=== PATIENT | male | born 1975 | race African-American/Black ===

== ENCOUNTER 2019-04-14 03:56 | Emergency (ER) | payer MEDICAID, OTHER ==
[2019-04-14] MEDS ORDERED: AMMONIA AROMATIC INHALANT (FLOOR STOCK) As Ordered ONE (04:08)
[2019-04-14 04:14] LABS: BASO % 0.3 % (0.0-1.0); EOS % 0.2 % (0.0-3.0); HEMATOCRIT 45.8 % (42.0-52.0); HEMOGLOBIN 14.6 g/dl (13.5-17.5); LYMPH # 2.5 10^3/uL (1.5-5.0); LYMPH % 20.3 % (24.0-44.0); MEAN CORPUSCULAR HEMOGLOBIN 29.6 pg (27.0-33.0); MEAN CORPUSCULAR HGB CONC 31.9 g/dl (32.0-36.5); MEAN CORPUSCULAR VOLUME 92.7 fl (80.0-96.0); MONO # 0.9 10^3/uL (0.0-0.8); MONO % 7.6 % (0.0-5.0); NEUTROPHILS # 8.6 10^3/uL (1.5-8.5); NEUTROPHILS % 71.2 % (36.0-66.0); PLATELET COUNT, AUTOMATED 279 10^3/uL (150-450); RED BLOOD COUNT 4.94 10^6/uL (4.30-6.10); WHITE BLOOD COUNT 12.1 10^3/uL (4.0-10.0)
[2019-04-14] MEDS ORDERED: NS 1,000 ML IV ONE (04:15)
[2019-04-14 04:29] LABS: INR 1.18; PROTHROMBIN TIME 14.7 SECONDS (11.8-14.0)
[2019-04-14 04:30] LABS: PARTIAL THROMBOPLASTIN TIME 23.9 SECONDS (25.0-38.4)
[2019-04-14 04:38] LABS: BLOOD UREA NITROGEN 13 MG/DL (7-18); CALCIUM LEVEL 8.9 MG/DL (8.5-10.1); CARBON DIOXIDE LEVEL 26 MEQ/L (21-32); CHLORIDE LEVEL 105 MEQ/L (98-107); CK-MB VALUE MASS 7.3 NG/ML (<3.6); CPK CREATINE PHOSPHOKINASE 898 U/L (39-308); CREATININE FOR GFR 1.41 MG/DL (0.70-1.30); ETHYL ALCOHOL (ETHANOL) 0.053 % (0.000-0.010); GLOMERULAR FILTRATION RATE > 60.0 (>60); GLUCOSE, FASTING 107 MG/DL (70-100); MB/CK RELATIVE INDEX 0.81 (< OR =4); POTASSIUM SERUM 3.8 MEQ/L (3.5-5.1); SODIUM LEVEL 141 MEQ/L (136-145); TROPONIN I < 0.02 NG/ML (< 0.10)
[2019-04-14] MEDS ORDERED: FLUT44IN INH (04:54)
[2019-04-14] MEDS ORDERED: PROAAER10 INH (04:54)
[2019-04-14] MEDS ORDERED: MORPHINE 4 MG/ML 1ML VIAL/SYRINGE (J2270) IV PRN (06:00)
[2019-04-14] MEDS ORDERED: ONDANSETRON 4MG/2ML VIAL (J2405) IV ONE (06:00)
[2019-04-14 06:26] LABS: AMPHETAMINES LEVEL URINE NEGATIVE (NEGATIVE); BARBITURATES URINE NEGATIVE (NEGATIVE); BENZODIAZEPINES URINE NEGATIVE (NEGATIVE); CANNABINOIDS URINE POSITIVE (NEGATIVE); COCAINE METABOLITE URINE NEGATIVE (NEGATIVE); METHADONE URINE NEGATIVE (NEGATIVE); OPIATES URINE NEGATIVE (NEGATIVE); PHENCYCLIDINE URINE NEGATIVE (NEGATIVE)
[2019-04-14] MEDS ORDERED: AUGM875T28 PO (06:59)
[2019-04-14] MEDS ORDERED: ONDA4TAB6 PO (06:59)
[2019-04-14] MEDS ORDERED: PERC5TAB12 PO (06:59)
[2019-04-14] MEDS ORDERED: OXYCODONE/APAP 5MG/325MG(BULK FOR ED) 1 TABLET PO ONE (07:00)
[2019-04-14 07:05] VITALS: BP 145/74
--- NOTE | 2019-04-14 08:01 | REP ---
Clinical: Trauma. Technique: Single portable view of the pelvis. Findings: No acute fracture dislocation. Skeletal structures, joint spaces, and surrounding soft tissues are normal. Impression: No fracture or dislocation. Electronically Signed by Humza Prado MD 04/14/2019 07:48 A
--- NOTE | 2019-04-14 08:01 | REP ---
Clinical: Trauma . Comparison: None . Findings: The mediastinum and cardiac silhouette are stable and within normal limits for portable technique. The lung zelaya are clear without acute consolidation, effusion, or pneumothorax. Skeletal structures are intact. Impression: No acute cardiopulmonary process appreciated. Electronically Signed by Humza Prado MD 04/14/2019 07:49 A
--- NOTE | 2019-04-14 09:01 | REP ---
Clinical: Trauma. Technique: Axial noncontrast images from the skull base to the thoracic inlet with coronal and sagittal re-formations. Findings: Alignment and lordosis maintained. Vertebral bodies are intact and there is no evidence for acute fracture / compression injury or subluxation. Spinal canal is patent. Posterior elements and spinous processes are intact. Mild multilevel age-related degenerative changes noted including subtle marginal spurring and very minimal disc space narrowing primarily involving C4 through C6. Paravertebral soft tissues are normal. Impression: 1. Mild age-related degenerative changes. 2. No evidence for acute pathology or trauma/injury. Electronically Signed by Humza Prado MD 04/14/2019 08:52 A
--- NOTE | 2019-04-14 09:03 | REP ---
Clinical: Trauma. Technique: Axial noncontrast images from the skull base to the vertex with coronal re-formations. Findings: Visualized periorbital (left greater than right) traumatic soft tissue swelling is appreciated and there are findings to suggest acute nasal bone fractures. The sinuses and mastoid air cells are clear. The ventricles, sulci, and cisterns are symmetric and normal. Bedoya-white differentiation is maintained. No acute intracranial hemorrhage, mass or mass effect. No extra-axial fluid collection. No evidence for intracranial trauma. Impression: 1. Facial trauma including suspected acute nasal bone fracture 2. No acute intracranial pathology or trauma/injury noted. Electronically Signed by Humza Prado MD 04/14/2019 08:54 A
--- NOTE | 2019-04-16 14:53 | ECGEPIP ---
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
--- NOTE | 2019-04-24 08:51 | REP ---
Maxillofacial CT study without contrast: Repeat dictation. History: Trauma. Preliminary report is provided at time of exam by [facility]. Findings: There is left malar and periorbital facial swelling. No intraorbital hematoma is seen. There is a minimally displaced fracture of the zygomatic arch on the left and there is a nondisplaced fracture of the anterior wall of the left maxillary sinus. No orbital floor fracture is appreciated. No orbital wall fracture is seen. There are slightly depressed fractures in the nasal bone. Visualized intracranial structures are unremarkable. Impression: Left zygomatic, left maxillary sinus, and nasal bone fractures as above. Left malar and preseptal periorbital soft tissue swelling. Electronically Signed by Angelo Quintana MD 04/24/2019 09:04 A
== END 2019-04-14 07:18 | disposition home or self-care (01) ==
LOC: M ED 03:56
DX: S02.40FA Zygomatic fracture, left side, initial encounter for closed fracture (principal); S02.40DA Maxillary fracture, left side, initial encounter for closed fracture; S02.2XXA Fracture of nasal bones, initial encounter for closed fracture; S06.0X1A Concussion with loss of consciousness of 30 minutes or less, initial encounter; T76.11XA Adult physical abuse, suspected, initial encounter; Y92.410 Unspecified street and highway as the place of occurrence of the external cause; Y93.01 Activity, walking, marching and hiking; Z79.51 Long term (current) use of inhaled steroids
CPT/HCPCS: 70450; 70486; 71045; 72125; 72170; 80047; 80048; 80307; 81001; 82550; 82553; 85025; 85610; 85730; 93005; 93041; 94760; 96361; 96374; 96375; 99285; G0480; J2270; J2405

== ENCOUNTER → 2019-11-13 | Emergency (ER) | payer MEDICAID, OTHER ==
[~2019-11-13] MED LIST: AUGM875T28 PO; AZITHROMYCIN 250MG TABLET ONE; FLUT44IN INH; ONDA4TAB6 PO; PERC5TAB12 PO; PROAAER10 INH; cefTRIAXone SOD 250MG VIAL (J0696 PER 250MG) ONE
[2019-12-15 12:29] LABS: CHLAMYDIA DNA AMPLIFICATION NEGATIVE (NEGATIVE); GC DNA AMPLIFICATION NEGATIVE (NEGATIVE)
== END | disposition home or self-care (01) ==
LOC: M ED 13:55
DX: Z11.3 Encounter for screening for infections with a predominantly sexual mode of transmission (principal); J45.909 Unspecified asthma, uncomplicated
CPT/HCPCS: 87491; 87591; 96372; 99283; J0696

== ENCOUNTER 2020-05-05 10:16 | Emergency (ER) | payer OTHER ==
[~2020-05-05] VITALS: Ht 170.2 cm; Wt 78.7 kg
[~2020-05-05 10:16] MED LIST changes: -AZITHROMYCIN 250MG TABLET ONE; -cefTRIAXone SOD 250MG VIAL (J0696 PER 250MG) ONE
--- OUTSIDE RECORDS SUMMARY | 2020-05-05 10:22 | CCD ---
Author Author [facility] Organization [facility] Address Unknown Phone Unavailable Care Team Providers Care Communications Media Professor Name Role Phone Namita PALMER MD Unavailable Unavailable Namita PALMER MD Unavailable Unavailable Namita PALMER MD Unavailable Unavailable Namita PALMER MD Unavailable Unavailable Namita PALMER MD Unavailable Unavailable Namita PALMER MD Unavailable Unavailable Namita PALMER MD Unavailable Unavailable Namita PALMER MD Unavailable Unavailable Namita PALMER MD Unavailable Unavailable Namita PALMER MD Unavailable Unavailable Namita PALMER MD Unavailable Unavailable Namita PALMER MD Unavailable Unavailable Namita PALMER MD Unavailable Unavailable Namita PALMER MD Unavailable Unavailable Namita PALMER MD Unavailable Unavailable Namita PALMER MD Unavailable Unavailable Namita PALMER MD Unavailable Unavailable Namita PALMER MD Unavailable Unavailable Namita PALMER MD Unavailable Unavailable Namita PALMER MD Unavailable Unavailable Namita PALMER MD Unavailable Unavailable Namita PALMER MD Unavailable Unavailable Namita PALMER MD Unavailable Unavailable Namita PALMER MD Unavailable Unavailable Namita PALMER MD Unavailable Unavailable Namita PALMER MD Unavailable Unavailable Namita PALMER MD Unavailable Unavailable Namita PALMER MD Unavailable Unavailable Namita PALMER MD Unavailable Unavailable Namita PALMER MD Unavailable Unavailable Namita PALMER MD Unavailable Unavailable Namita PALMER MD Unavailable Unavailable Namita PALMER MD Unavailable Unavailable Namita PALMER MD Unavailable Unavailable Namita PALMER MD Unavailable Unavailable Namita PALMER MD Unavailable Unavailable Namita PALMER MD Unavailable Unavailable Namita PALMER MD Unavailable Unavailable Namita PALMER MD Unavailable Unavailable Namita PALMER MD Unavailable Unavailable Namita PALMER MD Unavailable Unavailable Namita PALMER MD Unavailable Unavailable Namita PALMER MD Unavailable Unavailable Namita PALMER MD Unavailable Unavailable Namita PALMER MD Unavailable Unavailable Namita PALMER MD Unavailable Unavailable Namita PALMER MD Unavailable Unavailable Namita PALMER MD Unavailable Unavailable Namita PALMER MD Unavailable Unavailable Namita PALMER MD Unavailable Unavailable Namita PALMER MD Unavailable Unavailable Namita PALMER MD Unavailable Unavailable Namita PALMER MD Unavailable Unavailable Namita PALMER MD Unavailable Unavailable Namita PALMER MD Unavailable Unavailable Namita PALMER MD Unavailable Unavailable Namita PALMER MD Unavailable Unavailable Namita PALMER MD Unavailable Unavailable Namita PALMER MD Unavailable Unavailable Namita PALMER MD Unavailable Unavailable Namita PALMER MD Unavailable Unavailable Namita PALMER MD Unavailable Unavailable Namita PALMER MD Unavailable Unavailable Namita PALMER MD Unavailable Unavailable Namita PALMER MD Unavailable Unavailable Namita PALMER MD Unavailable Unavailable Namita PALMER MD Unavailable Unavailable Namita PALMER MD Unavailable Unavailable Namita PALMER MD Unavailable Unavailable Namita PALMER MD Unavailable Unavailable Namita PALMER MD Unavailable Unavailable Namita PALMER MD Unavailable Unavailable Namita PALMER MD Unavailable Unavailable Namita PALMER MD Unavailable Unavailable Namita PALMER MD Unavailable Unavailable Namita PALMER MD Unavailable Unavailable Namita PALMER MD Unavailable Unavailable Namita PALMER MD Unavailable Unavailable Namita PALMER MD Unavailable Unavailable Namita PALMER MD Unavailable Unavailable Namita PALMER MD Unavailable Unavailable Namita PALMER MD Unavailable Unavailable Namita PALMER MD Unavailable Unavailable Re-disclosure Warning The records that you are about to access may contain information from federally-assisted alcohol or drug abuse programs. If such information is present, then the following federally mandated warning applies: This information has been disclosed to you from records protected by federal confidentiality rules (42 CFR part 2). The federal rules prohibit you from making any further disclosure of this information unless further disclosure is expressly permitted by the written consent of the person to whom it pertains or as otherwise permitted by 42 CFR part 2. A general authorization for the release of medical or other information is NOT sufficient for this purpose. The Federal rules restrict any use of the information to criminally investigate or prosecute any alcohol or drug abuse patient.The records that you are about to access may contain highly sensitive health information, the redisclosure of which is protected by Article 27-F of the [facility] Public Health law. If you continue you may have access to information: Regarding HIV / AIDS; Provided by facilities licensed or operated by the [facility] Office of Mental Health; or Provided by the [facility] Office for People With Developmental Disabilities. If such information is present, then the following [facility] mandated warning applies: This information has been disclosed to you from confidential records which are protected by state law. State law prohibits you from making any further disclosure of this information without the specific written consent of the person to whom it pertains, or as otherwise permitted by law. Any unauthorized further disclosure in violation of state law may result in a fine or usp sentence or both. A general authorization for the release of medical or other information is NOT sufficient authorization for further disc losure. Encounters Encounter Providers Location Date Indications Data Source(s ) Outpatient Attender: CHIDI PALMER MD 09/26/2019 07:59:32 P M EDT [facility] Health Insurance Providers Payer name Policy type / Coverage type Policy ID Covered libertarian ID Covered libertarian's relationship to henderson Policy [place] Plan Information [facility] [id number] SP [id number] [place]ED[place] [id number] SP [id number] MEDICAID [id number] SP [id number] [facility] [id number] SP [id number]
--- OUTSIDE RECORDS SUMMARY | 2020-05-05 10:55 | CCD ---
Author Author [facility] Organization [facility] Address Unknown Phone Unavailable Care Team Providers Care Rand Sewer Name Role Phone Namita PALMER MD Unavailable [...] is protected by Article 27-F of the [facility] Public Health law. If you continue you may have access to information: Regarding HIV / AIDS; Provided by facilities licensed or operated by the [facility] Office of Mental Health; or Provided by the [facility] Office for People With Developmental Disabilities. If such information is present, then the following [facility] mandated warning applies: This information has been [...] law may result in a fine or long-term sentence or both. A general authorization for the release of medical or other information is NOT sufficient authorization for further disc losure. Encounters Encounter Providers Location Date Indications Data Source(s ) Outpatient Attender: CHIDI PALMER MD 09/26/2019 07:59:32 P M EDT [facility] Health Insurance Providers Payer name Policy type / Coverage type Policy ID Covered democrat ID Covered democrat's relationship to henderson Policy [place] Plan Information [facility] [id number] SP [id number] EMED[place] [id number] SP [id number] MEDICAID [id number] SP [id number] [facility] [id number] SP [id number]
[2020-05-05] MEDS ORDERED: cefTRIAXone SOD 1GM VIAL (J0696 PER 250MG) IM ONE (11:00)
[2020-05-05] MEDS ORDERED: LIDOCAINE 1% SDV 5ML VIAL DILUENT ONE (11:00)
[2020-05-05] MEDS ORDERED: AZITHROMYCIN 250MG TABLET PO ONE (11:00)
[2020-05-05 11:40] VITALS: BP 129/87
[2020-05-05 12:22] LABS: CHLAMYDIA DNA AMPLIFICATION NEGATIVE (NEGATIVE); GC DNA AMPLIFICATION POSITIVE (NEGATIVE)
[2020-05-06 10:57] LABS: HEPATITIS B SURFACE ANTIBODY POSITIVE (POSITIVE); HEPATITIS B SURFACE ANTIGEN NEGATIVE (NEGATIVE); HIV 1&2 SCREEN CENTAUR NEGATIVE (NEGATIVE)
== END 2020-05-05 11:42 | disposition home or self-care (01) ==
LOC: M ED 10:16
DX: Z20.2 Contact with and (suspected) exposure to infections with a predominantly sexual mode of transmission (principal); Z79.51 Long term (current) use of inhaled steroids
CPT/HCPCS: 81001; 86706; 86780; 86803; 87086; 87340; 87389; 87491; 87591; 96372; 99283; J0696

== ENCOUNTER → 2020-09-05 | Outpatient (REF) | payer OTHER | LOC: M LAB REF 15:44 | PROVIDERS: ATTEND Surgery | DX: U07.1 COVID-19 (principal) ==

== ENCOUNTER 2022-07-15 11:31 | Emergency (ER) | payer MEDICAID, OTHER ==
[~2022-07-15] VITALS: Ht 172.7 cm; Wt 82.9 kg
[2022-07-15] MEDS ORDERED: ACETAMINOPHEN TAB 650MG DOSE (2X325MG) PO ONE (12:35)
[2022-07-15] MEDS ORDERED: CEPHALEXIN 500 MG CAP PO ONE (12:35)
[2022-07-15] MEDS ORDERED: CEPH500C PO (12:54)
[2022-07-15 12:58] VITALS: BP 141/90
== END 2022-07-15 13:05 | disposition home or self-care (01) ==
LOC: M ED 11:31
DX: S61.307A Unspecified open wound of left little finger with damage to nail, initial encounter (principal); W26.0XXA Contact with knife, initial encounter; Y93.G1 Activity, food preparation and clean up; Y99.0 Civilian activity done for income or pay

== ENCOUNTER → 2022-07-17 | Outpatient (CLI) | payer MEDICAID ==
[~2022-07-17] MED LIST changes: +CEPH500C PO
== END ==
LOC: M SOG 09:58
PROVIDERS: ATTEND Physician Assistant
DX: M79.645 Pain in left finger(s) (principal)

== ENCOUNTER 2023-04-09 06:00 | Emergency (ER) | payer MEDICAID, OTHER ==
[2023-04-09] MEDS ORDERED: LIDOCAINE 2% MDV 20ML VIAL SC ONE (07:45)
[2023-04-09] MEDS ORDERED: BACITRACIN OINTMENT 30GM TUBE TOP STA (08:27)
[2023-04-09 08:33] VITALS: BP 126/90; TEMP 98.7; O2SAT 97
[2023-04-10] MEDS ORDERED: IBUP80TA PO (20:08)
[2023-04-10] MEDS ORDERED: AMOX875T2 PO (20:08)
[2023-04-10] MEDS ORDERED: EMTR1TAB16 PO (20:09)
[2023-04-10] MEDS ORDERED: RALT40TA PO (20:09)
== END 2023-04-09 08:59 | disposition home or self-care (01) ==
LOC: M ED 06:00
DX: S61.411A Laceration without foreign body of right hand, initial encounter (principal); S60.221A Contusion of right hand, initial encounter; X58.XXXA Exposure to other specified factors, initial encounter; Y92.89 Other specified places as the place of occurrence of the external cause; Y93.9 Activity, unspecified; Y99.9 Unspecified external cause status

== ENCOUNTER 2023-04-18 21:31 | Emergency (ER) | payer OTHER ==
[~2023-04-18] VITALS: Ht 175.3 cm; Wt 86.4 kg
[~2023-04-18 21:31] MED LIST changes: +AMOX875T2 PO; +EMTR1TAB16 PO; +IBUP80TA PO; +RALT40TA PO
[2023-04-18 21:37] VITALS: BP 126/80; TEMP 99.8; O2SAT 95
[2023-04-18 22:57] LABS: RSV AMPLIFICATION POSITIVE (NEGATIVE)
[2023-04-19] MEDS ORDERED: ONDANSETRON 4MG 2ML VIAL IV ONE (00:30)
[2023-04-19] MEDS ORDERED: NS 1,000 ML IV ONE (00:30)
[2023-04-19 01:03] LABS: BASO % 0.2 % (0.0-1.0); EOS % 0.2 % (0.0-3.0); HEMATOCRIT 39.8 % (42.0-52.0); HEMOGLOBIN 13.7 g/dl (13.5-17.5); LYMPH # 2.3 10^3/uL (1.5-5.0); LYMPH % 21.7 % (24.0-44.0); MEAN CORPUSCULAR HEMOGLOBIN 31.2 pg (27.0-33.0); MEAN CORPUSCULAR HGB CONC 34.4 g/dl (32.0-36.5); MEAN CORPUSCULAR VOLUME 90.7 fl (80.0-96.0); MONO # 1.3 10^3/uL (0.0-0.8); MONO % 12.4 % (2.0-8.0); NEUTROPHILS # 6.8 10^3/uL (1.5-8.5); NEUTROPHILS % 65.1 % (36.0-66.0); PLATELET COUNT, AUTOMATED 188 10^3/uL (150-450); RED BLOOD COUNT 4.39 10^6/uL (4.30-6.10); WHITE BLOOD COUNT 10.4 10^3/uL (4.0-10.0)
[2023-04-19 01:27] LABS: ALBUMIN 3.5 G/DL (3.2-5.2); ALKALINE PHOSPHATASE 66 U/L (46-116); ALT/SGPT 28 U/L (7.0-40); AST/SGOT 31 U/L (<34); BILIRUBIN,DIRECT 0.4 MG/DL (<0.4); BILIRUBIN,TOTAL 1.2 MG/DL (0.3-1.2); BLOOD UREA NITROGEN 10 MG/DL (9-23); CALCIUM LEVEL 8.2 MG/DL (8.5-10.1); CARBON DIOXIDE LEVEL 27 MMOL/L (20-31); CHLORIDE LEVEL 103 MMOL/L (98-107); GLOMERULAR FILTRATION RATE > 60.0 (>60); GLUCOSE, FASTING 102 MG/DL (60-100); POTASSIUM SERUM 3.3 MMOL/L (3.5-5.1); SODIUM LEVEL 137 MMOL/L (136-145); TOTAL PROTEIN 6.5 G/DL (5.7-8.2)
[2023-04-19] MEDS: IPRATROPIUM 0.5MG/ALBUTEROL 2.5MG INH SOL UD 3ML (DUONEB) NEB SCH (01:39)
[2023-04-19] MEDS ORDERED: ONDA4TAB6 PO (01:53)
[2023-04-19] MEDS ORDERED: VENTAER INH (01:53)
[2023-04-19] MEDS ORDERED: BENZ200C70 PO (01:53)
[2023-04-19] MEDS ORDERED: dexAMETHasone 20MG/5ML VIAL IV ONE (01:55)
== END 2023-04-19 02:17 | disposition home or self-care (01) ==
LOC: M ED 21:31 → EDBD 21:31 → M ED 04-19 02:17
DX: J21.0 Acute bronchiolitis due to respiratory syncytial virus (principal); Z79.2 Long term (current) use of antibiotics; Z79.899 Other long term (current) drug therapy; Z79.52 Long term (current) use of systemic steroids; Z79.811 Long term (current) use of aromatase inhibitors
CPT/HCPCS: 71045; 80048; 80076; 85025; 87631; 94640; 96361; 96374; 96375; 99284; J1100; J2405

== ENCOUNTER → 2023-04-20 | Outpatient (REF) | payer OTHER ==
[~2023-04-20] MED LIST changes: +BENZ200C70 PO; +VENTAER INH
== END ==
LOC: M LAB REF 10:12
PROVIDERS: ATTEND Physician Assistant Medical
DX: R19.7 Diarrhea, unspecified (principal)